=== PATIENT | male | born 1955 | race Caucasian/White ===

== ENCOUNTER → 2017-08-16 | Outpatient (CLI) | payer OTHER ==
[~2017-08-16] MED LIST: AMBIEN CR12.5 MG PO; LISINOPRIL2.5 MG PO; PANTOPRAZOLE SO40 MG PO
--- NOTE | 2017-08-16 15:50 | Diagnostic Imaging Report ---
PROCEDURE:US RETROPERITONEAL ( KIDNEY ). COMPARISON:Patients [facility], CT, CT ABDOMEN/PELVIS WO, 07/05/2016, 13:21. INDICATIONS:FOLLOW UP CYSTS TECHNIQUE: Gordon-scale and color sonographic images of the bilateral kidneys and bladder where obtained in transverse and longitudinal planes. FINDINGS: RIGHT KIDNEY: 13.1 cm, cortex 2.0 cm Cysts: 3.4 x 2.8 x 3.7 cm cystic, anechoic lesion in the superior pole. Solid masses: None Stones: None Hydronephrosis: None Echogenicity: Normal LEFT KIDNEY: 12.3 cm, cortex 1.7 cm Cysts: 3.7 x 3.5 x 3.3 cm cystic, anechoic, mostly exophytic lesion in the inferomedial aspect. Adjacent 2.0 x 1.3 x 2.6 cm cystic hypoechoic lesion in the inferomedial aspect with a thin nonvascular septation. 3.0 x 2.4 x 1.9 cm cystic, anechoic lesion in the superior pole. Solid masses: None Stones: 0.7 x 0.8 x 0.5 cm hyperechoic focus in the superior to mid aspect with mild frontal artifact, likely representing a nonobstructing calculus. Hydronephrosis: None Echogenicity: Normal Bladder: Unremarkable. No focal lesions. Bilateral ureteral jets are identified. Prostate: 5.0 x 4.5 x 5.9 cm (estimated volume 69 mL). CONCLUSION: 1. Normal bilateral renal size, and echogenicity. No hydronephrosis or obstruction. 2. Stable bilateral simple and left inferomedial minimally complicated cysts. 3. 0.8 cm left nonobstructing renal calculus. 4. Prostatic enlargement, likely due to BPH. Florencio Leos M.D. Dictated by: Florencio Leos M.D. on 08/16/2017 at 14:15 Electronically approved by: Florencio Leos M.D. on 08/16/2017 at 15:54
== END ==
LOC: US 12:28
PROVIDERS: ATTEND Urology
DX: N20.0 Calculus of kidney (principal); N28.1 Cyst of kidney, acquired
CPT/HCPCS: 76770

== ENCOUNTER → 2017-08-22 | Outpatient (CLI) | payer OTHER ==
--- NOTE | 2017-08-22 17:37 | Diagnostic Imaging Report ---
PROCEDURE:X-RAY ABDOMEN - KUB COMPARISON:KUB 12/15/2016. Renal ultrasound 08/16/2017 INDICATIONS:kidney stones FINDINGS: There is a non-obstructed bowel-gas pattern. Clot is surgical clips. There are no calcifications projected over the renal shadows, expected course of the ureters or bladder. Degenerative changes in the lumbar spine. The lung bases are clear. CONCLUSION: Normal abdominal radiograph. No radiopaque stones. Dictated by: Luke Blair M.D. on 08/22/2017 at 17:42 Electronically approved by: Luke Blair M.D. on 08/22/2017 at 17:42
== END ==
LOC: RAD 15:56
PROVIDERS: ATTEND Urology
DX: N20.0 Calculus of kidney (principal)
CPT/HCPCS: 74018

== ENCOUNTER → 2018-07-29 | Outpatient (CLI) | payer OTHER ==
--- NOTE | 2018-07-29 14:08 | Diagnostic Imaging Report ---
Abdomen, 1 view. History: Kidney stones. Findings: Air is scattered throughout nondilated small and large bowel. A 4 mm calcification is projected over the lower pole of the left kidney. Degenerative changes are present throughout the lumbar spine. Surgical clips are noted in the left upper quadrant of the abdomen. IMPRESSION: Non-specific bowel gas pattern. Possible small left renal stone. Signed by: Oliverio Segovia on 07/29/2018 2:04 PM
== END ==
LOC: RAD 11:40
PROVIDERS: ATTEND Urology
DX: N20.0 Calculus of kidney (principal)
CPT/HCPCS: 74018

== ENCOUNTER 2019-01-11 12:41 | Emergency (ER) | payer OTHER ==
[~2019-01-11] VITALS: Ht 180.3 cm; Wt 128.4 kg
--- OUTSIDE RECORDS SUMMARY | 2019-01-11 12:45 | XMS REPORT | Encounter Summary ---
Author Organization Unknown Address [address] [place] [address] Phone [phone] Care Team Providers Care Fixing Carpenter Name Role Phone Dr. Jose Kellogg 3 [phone] Rosita Lujan MD 82 [phone] Neville Barrow MD 104 [phone] Rhett Olson MD 114 [phone] Reason for Visit Benign essential hypertension Instructions 1. Benign essential hypertension lisinopril 5 mg tablet 2. Immunization Adacel (Tdap Adolesn/Adult)(PF)2 Lf-(2.5-5-3-5)-5 Lf/0.5 mL IM syringe 3. Cigarette smoker stopping smoking: care instructions 4. Body mass index 40+ - severely obese Discussion Note: None recorded. Plan of Care Reminders Provider Appointments Return to Office on or around 09/07/2018 Jose Steward MD Lab None recorded. Referral None recorded. Procedures None recorded. Surgeries None recorded. Imaging None recorded. Medications Name Start Date lisinopril 5 mg tablet Take 1 tablet every day by oral route as directed for 90 days. Vitamin D2 50,000 unit capsule TAKE ONE CAPSULE BY MOUTH ONE TIME PER WEEK zolpidem ER 6.25 mg tablet,extended release,multiphase QD PRN Medications Administered None recorded. Vitals Height Weight BMI Blood Pressure 5 ft 11 in 284.4 lbs 39.7 kg/m2 (1) 148/78 mm[Hg] (2) 138/72 mm[Hg] Lab Results None recorded. Allergies Code Code System Name Reaction Severity Status Onset 5933 RxNorm Iodine Active NKDA Problems Name Status Onset Date Source Hypercholesterolemia Active 12/22/2015 Body Mass Index 30+ - Obesity Active 12/22/2015 Nicotine Withdrawal Active 12/22/2015 Depressive Disorder Active 12/22/2015 Insomnia Active 12/22/2015 Benign Essential Hypertension Active 12/22/2015 History of Tobacco Use Active 12/22/2015 Coronary Arteriosclerosis in [place] Artery Active 03/22/2016 Procedures Date Name Performed by 02/06/2016 ENT Surgery (Ear, Nose, Throat) Information not available 12/20/2015 Extraction Erupted Tooth/exr Information not available 02/05/2015 Orthopedic Surgery Information not available 02/05/2013 Orthopedic Surgery Information not available 02/05/2005 Gastrointestinal Surgery Information not available Hernia Repair Information not available Gastric Bypass Information not available Fragmenting of Kidney Stone Information not available Carpal Tunnel Surgery Information not available Knee Surgery Information not available Vaccine List Vaccine Type Tdap 02/06/2008 03/11/20180.5 mL zoster 03/22/20160.65 mL Social History Smoking Status Smoker, Current Status Unknown (1 PPD) Past Encounters 03/11/2018 Benign Essential Hypertension; Immunization; Cigarette Smoker; Body Mass Index 40+ - Severely Obese Jose Steward MD: [address] [place] [address], Ph. History of Present Illness Note:F/u on htn. Needs refill in lisinopril. Compliant with meds. Non compliant with diet or exercise. BPs at home 120s/80s. Side effects with lisinopril: cough. No new concerns. Review of Systems Comprehensive General Adult ROS Reported By: Patient Eyes: Eyes: no vision change Cardiovascular: Cardiovascular: no chest pain, no palpitations, no lightheadedness Respiratory: Respiratory: no wheezing, no shortness of breath, cough Gastrointestinal: Gastrointestinal: no abdominal pain, no nausea, no vomiting, no constipation, no diarrhea Musculoskeletal: Musculoskeletal: no muscle aches, no swelling in the extremities Neurologic: Neurologic: no loss of consciousness, no headaches Psychiatric: Psych: no depression, no alcohol abuse, no anxiety, no suicidal thoughts Physical Exam General Adult Exam (male) Reported By: Patient Constitutional: General Appearance: healthy-appearing, obese. Level of Distress: NAD. Ambulation: ambulating normally Psychiatric: Insight: good judgement. Mental Status: active and alert, normal mood, normal affect. Orientation: to time, to place, to person. Memory: recent memory normal, remote memory normal Eyes: Lids and Conjunctivae: non-injected, no discharge ENMT: Lips, Teeth, and Gums: no mouth or lip ulcers. Oropharynx: moist mucous membranes Neck: Neck: supple, trachea midline. Thyroid: no enlargement, non-tender Lungs: Auscultation: breath sounds normal Cardiovascular: Heart Auscultation: RRR, normal S1, normal S2, no murmurs. Neck vessels: no carotid bruits. Pulses including femoral / pedal: normal throughout Musculoskeletal:: Motor Strength and Tone: normal, normal tone. Extremities: no edema Neurologic: Gait and Station: normal gait
--- OUTSIDE RECORDS SUMMARY | 2019-01-11 12:45 | XMS REPORT | Encounter Summary ---
Author Organization Unknown Address [address] [place] [address] Phone [phone] Care Team Providers Care Management Engineer Name Role Phone Dr. Jose Kellogg 3 [phone] Rosita Lujan MD 82 [phone] Neville Barrow MD 104 [phone] Philip Craig MD 107 [phone] Rhett Olson MD 114 [phone] Reason for Visit Benign essential hypertension Instructions 1. Benign essential hypertension lisinopril 5 mg tablet CMP, serum or plasma lipid panel, serum 2. Screening for malignant neoplasm of colon fecal occult blood, stool 3. Screening for malignant neoplasm of prostate PSA, serum or plasma Discussion Note: None recorded. Patient educational handouts: No information available. Plan of Care Reminders Provider Appointments None recorded. Lab Fecal Occult Blood, Stool 10/21/2018 [facility] PSA, Serum or Plasma 10/21/2018 [facility] CMP, Serum or Plasma 10/21/2018 [facility] Lipid Panel, Serum 10/21/2018 [facility] Referral None recorded. Procedures None recorded. Surgeries None recorded. Imaging None recorded. Medications Name Start Date lisinopril 5 mg tablet TAKE 1 TABLET BY MOUTH EVERY DAY DIRECTED multivitamin one daily zolpidem ER 6.25 mg tablet,extended release,multiphase QD PRN Medications Administered None recorded. Vitals Height Weight BMI Blood Pressure 5 ft 11 in 287 lbs 40 kg/m2 122/70 mm[Hg] Lab Results None recorded. Allergies Code Code System Name Reaction Severity Status Onset 5933 RxNorm Iodine Active NKDA Problems Name Status Onset Date Source Hypercholesterolemia Active 12/22/2015 Body Mass Index 30+ - Obesity Active 12/22/2015 Nicotine Withdrawal Active 12/22/2015 Depressive Disorder Active 12/22/2015 Insomnia Active 12/22/2015 Benign Essential Hypertension Active 12/22/2015 History of Tobacco Use Active 12/22/2015 Coronary Arteriosclerosis in [place] Artery Active 03/22/2016 Procedures Date Name Performed by 02/06/2016 ENT Surgery (Ear, Nose, Throat) Information not available 12/20/2015 Extraction Erupted Tooth/exr Information not available 02/05/2015 Orthopedic Surgery Information not available 02/05/2013 Orthopedic Surgery Information not available 02/05/2005 Gastrointestinal Surgery Information not available Colonoscopy with Biopsy Information not available Hernia Repair Information not available Gastric Bypass Information not available Fragmenting of Kidney Stone Information not available Carpal Tunnel Surgery Information not available Knee Surgery Information not available Vaccine List Vaccine Type Tdap 02/06/2008 03/11/20180.5 mL zoster 03/22/20160.65 mL Social History Tobacco Smoking Status Smoker, Current Status Unknown (1 PPD) Past Encounters 10/21/2018 Benign Essential Hypertension; Screening for Malignant Neoplasm of Colon; Screening for Malignant Neoplasm of Prostate Jose Steward MD: [address] [place] [address], Ph. History of Present Illness None recorded. Review of Systems None recorded. Physical Exam None recorded.
--- OUTSIDE RECORDS SUMMARY | 2019-01-11 12:45 | XMS REPORT ---
Author Author [facility] Address Unknown Phone Unavailable Care Team Providers Care Lpn Or Medical Assistant Name Role Phone ADRIANE HDZ Unavailable Unavailable Problems This patient has no known problems. Allergies, Adverse Reactions, Alerts This patient has no known allergies or adverse reactions. Medications This patient has no known medications. Results Test Description Test Time Test Comments Text Results Atomic Results Result Comments ABDOMEN-1VIEW (KU) 2018-07-29 14:03:00 [place] [address] Patient Name: BOSTON ADKINS MR #: [id number] : 1955 Age/Sex: 62/M Req #: [id number] Adm Physician: Ordered by: ADRIANE HDZ MD Report #: [id number] Location: [facility] Room/Bed: Procedure: [id number] DX/ABDOMEN-1VIEW (KU) Exam Date: 07/29/18 Exam Time: 1220 REPORT STATUS: Signed Abdomen, 1 view. History: Kidney stones. Findings: Air is scattered throughout nondilated small and large bowel. A 4 mm calcification is projected over the lower pole of the left kidney. Degenerative changes are present throughout the lumbar spine. Surgical clips are noted in the left upper quadrant of the abdomen. IMPRESSION: Non-specific bowel gas pattern. Possible small left renal stone. Signed by: Vanessa Segovia on 07/29/2018 2:04 PM Dictated By: VANESSA SEGOVIA MD 03 Transcribed By: FRANCESCO on 07/29/181403 COPY TO: ADRIANE HDZ MD ABDOMEN-1VIEW (KUB) 2017-08-22 17:42:00 [place] [address] Patient Name: BOSTON ADKINS MR #: [id number] : 1955 Age/Sex: 61/M Req #: [id number] Adm Physician: Ordered by: ADRIANE HDZ MD Report #: [id number] Location: [facility] Room/Bed: Procedure: [id number] DX/ABDOMEN-1VIEW (KUB) Exam Date: 08/22/17 Exam Time: 1632 REPORT STATUS: Signed PROCEDURE: X-RAY ABDOMEN - KUB COMPARISON: KUB 12/15/2016. Renal ultrasound 08/16/2017 INDICATIONS: kidney stones FINDINGS: There is a non-obstructed bowel-gas pattern. Clot is surgical clips. There are no calcifications projected over the renal shadows, expected course of the ureters or bladder. Degenerative changes in the lumbar spine. The lung bases are clear. CONCLUSION: Normal abdominal radiograph. No radiopaque stones. Dictated by: Martín Watts M.D. on 08/22/2017 at 17:42 Electronically approved by: Martín Watts M.D. on 08/22/2017 at 17:42 Dictated By: MARTÍN WATTS MD 41 Transcribed By: CARI on 08/22/171741 COPY TO: ADRIANE HDZ MD RENAL RETROPERITONEAL COMP 2017-08-16 14:15:00 [facility] [address] [place] [address] Patient Name: BOSTON ADKINS MR #: [id number] : 1955 Age/Sex: 61/M Req #: [id number] Adm Physician: Ordered by: ADRIANE HDZ MD Report #: [id number] Location: Room/Bed: Procedure: [id number] US/US RENAL RETROPERITONEAL COMP Exam Date: 08/16/17 Exam Time: 1300 REPORT STATUS: Signed PROCEDURE: US RETROPERITONEAL ( KIDNEY ). COMPARISON: [facility], CT, CT ABDOMEN/PELVIS WO, 07/05/2016, 13:21. INDICATIONS: FOLLOW UP CYSTS TECHNIQUE: Gordon-scale and color sonographic images of the bilateral kidneys and bladder where obtained in transverse and longitudinal planes. FINDINGS: RIGHT KIDNEY: 13.1 cm, cortex 2.0 cm Cysts: 3.4 x 2.8 x 3.7 cm cystic, anechoic lesion in the superior pole. Solid masses: None Stones: None Hydronephrosis: None Echogenicity: Normal LEFT KIDNEY: 12.3 cm, cortex 1.7 cm Cysts: 3.7 x 3.5 x 3.3 cm cystic, anechoic, mostly exophytic lesion in the inferomedial aspect. Adjacent 2.0 x 1.3 x 2.6 cm cystic hypoechoic lesion in the inferomedial aspect with a thin nonvascular septation. 3.0 x 2.4 x 1.9 cm cystic, anechoic lesion in the superior pole. Solid masses: None Stones: 0.7 x 0.8 x 0.5 cm hyperechoic focus in the superior to mid aspect with mild frontal artifact, likely representing a nonobstructing calculus. Hydronephrosis: None Echogenicity: Normal Bladder: Unremarkable. No focal lesions. Bilateral ureteral jets are identified. Prostate: 5.0 x 4.5 x 5.9 cm (estimated volume 69 mL). CONCLUSION: 1. Normal bilateral renal size, and echogenicity. No hydronephrosis or obstruction. 2. Stable bilateral simple and left inferomedial minimally complicated cysts. 3. 0.8 cm left nonobstructing renal calculus. 4. Prostatic enlargement, likely due to BPH. Nelly Leos M.D. Dictated by: Nelly Leos M.D. on 08/16/2017 at 14:15 Electronically approved by: Nelly Leos M.D. on 08/16/2017 at 15:54 Dictated By: NELLY LEOS MD 53 Transcribed By: CARI on 08/16/171553 COPY TO: ADRIANE HDZ MD ABDOMEN-1VIEW (KUB) [place] [address] Patient Name: BOSTON ADKINS MR #: [id number] : 1955 Age/Sex: 61/M Req #: [id number] Adm Physician: Ordered by: ADRIANE HDZ MD Report #: [id number] Location: [facility] Room/Bed: Procedure: [id number] DX/ABDOMEN-1VIEW (KUB) Exam Date: 12/15/16 Exam Time: 1130 REPORT STATUS: Signed PROCEDURE: X-RAY ABDOMEN - KUB COMPARISON: Abdominal CT 07/05/2016. INDICATIONS: CALCULUS OF KIDNEY FINDINGS: Two tiny calcifications project over the inferior renal silhouettes, likely corresponding to the inferior pole calculi on the prior CT. No new calcifications project over the renal shadows, expected course of the ureters or bladder. There is a non-obstructed bowel-gas pattern. Surgical clips project over the left upper quadrant related to gastric bypass. There are no acute osseous abnormalities. The lung bases are clear. CONCLUSION: Redemonstration of two tiny calculi in the inferior kidneys. Dictated by: Doug Goss M.D. on 12/15/2016 at 14:51 Electronically approved by: Doug Goss M.D. on 12/15/2016 at 14:51 Dictated By: LAURA GOSS MD 1451 Transcribed By: CARI on 12/15/16 1451 COPY TO: ADRIANE HDZ MD
--- OUTSIDE RECORDS SUMMARY | 2019-01-11 12:45 | XMS REPORT | Encounter Summary ---
Author Organization Unknown Address [address] [place] [address] Phone [phone] Care Team Providers Care Software Program Manager Name Role Phone Dr. Jose Kellogg 3 [phone] Rosita Lujan MD 82 [phone] Neville Barrow MD 104 [phone] Philip Craig MD 107 [phone] Rhett Olson MD 114 [phone] Reason for Visit Benign essential hypertension Instructions 1. Benign essential hypertension lisinopril 5 mg tablet 2. Screening for malignant neoplasm of colon fecal occult blood, stool 3. Influenza vaccination declined 4. Body mass index 40+ - severely obese body mass index: care instructions learning about healthy weight 5. Insomnia Discussion Note defer >lisinopril at this time -upset at appt wait time Plan of Care Patient Instructions continue all meds,<wgt/>exercise,call office for if wants resumption wellbutrin Reminders Provider Appointments Return to Office on or around 01/20/2019 Parish Aguero MD Lab Fecal Occult Blood, Stool 10/21/2018 [facility] Laboratory Referral None recorded. Procedures None recorded. Surgeries None recorded. Imaging None recorded. Medications Name Start Date lisinopril 5 mg tablet TAKE 1 TABLET BY MOUTH EVERY DAY DIRECTED multivitamin one daily zolpidem ER 6.25 mg tablet,extended release,multiphase QD PRN Medications Administered None recorded. Vitals Height Weight BMI Blood Pressure 5 ft 11 in 288.2 lbs 40.2 kg/m2 (1) 154/82 mm[Hg] (2) 150/76 mm[Hg] Lab Results None recorded. Allergies Code Code System Name Reaction Severity Status Onset 5933 RxNorm Iodine Active NKDA Problems Name Status Onset Date Source Hypercholesterolemia Active 12/22/2015 Body Mass Index 30+ - Obesity Active 12/22/2015 Nicotine Withdrawal Active 12/22/2015 Depressive Disorder Active 12/22/2015 Insomnia Active 12/22/2015 Benign Essential Hypertension Active 12/22/2015 History of Tobacco Use Active 12/22/2015 Coronary Arteriosclerosis in [place] Artery Active 03/22/2016 Procedures Date Name Performed [...] Hypertension; Screening for Malignant Neoplasm of Colon; Influenza Vaccination Declined; Body Mass Index 40+ - Severely Obese; Insomnia Parish Aguero MD: [address] [place] [address], Ph. 10/21/2018 Benign Essential Hypertension; Screening for Malignant Neoplasm of Colon; Screening for Malignant Neoplasm of Prostate Jose Steward MD: [address] [place] [address], Ph. 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 Physical Exam Cardiology Exam Reported By: Patient Constitutional: General Appearance: well-developed, appears stated age, obese. Level of Distress: comfortable Psychiatric: Mental Status: alert, normal affect. Orientation: oriented to time, place, and person. Insight: good judgment Eyes: Lids and Conjunctivae: non-injected, anicteric, no discharge, no pallor, no arcus senilis, no xanthelasma. Pupils: PERRLA Neck: Neck: supple, trachea midline, no masses, FROM. Carotid Arteries: bilateral normal upstroke, no bruits, no thrills. Cervical Lymph Nodes: non tender, not enlarged. Thyroid: not enlarged, non tender, no nodules Lungs: Respiratory Effort: unlabored. Chest Exam: normal curvature, no thoracic deformity, no chest wall tenderness. Percussion: resonant. Auscultation: clear, no wheezing, no rales, no rhonchi Cardiovascular: Precordial Exam: non displaced focal PMI, no heaves, no precordial thrills. Rate And Rhythm: regular. Heart Sounds: normal S1, physiologically split S2, no rub, no gallop, no click. Systolic Murmur: not heard. Diastolic Murmur: not heard. Extremities: no cyanosis, no edema, no peripheral signs of emboli Skin: Inspection and Palpation: warm and dry. Nails: no clubbing
[2019-01-11] MEDS ORDERED: AMBIEN5 MG PO (12:55)
[2019-01-11] MEDS ORDERED: KETOROLAC TROMETHAMINE 30 MG/ML VIAL IV STA (12:59)
[2019-01-11] MEDS ORDERED: KETOROLAC TROMETHAMINE 30 MG/ML VIAL ONE (13:03)
[2019-01-11] MEDS ORDERED: SODIUM CHLORIDE 0.9% 1000 ML BAG IV ONE (13:15)
[2019-01-11] MEDS ORDERED: SODIUM CHLORIDE 0.9% 1000ML 1,000 ML ONE (13:23)
--- NOTE | 2019-01-11 14:34 | Diagnostic Imaging Report ---
EXAM: CT Abdomen and Pelvis without contrast INDICATION: Right flank pain, query stone. COMPARISON: Report from CT abdomen/pelvis dated 01/20/2009, although the images are not available for review. TECHNIQUE: Abdomen and pelvis were scanned utilizing a multidetector helical scanner from the lung base to the pubic symphysis without administration of IV contrast. Lack of IV contrast limits evaluation of visceral and vascular structures. Coronal and sagittal reformations were obtained. Renal stone protocol was performed. IV CONTRAST: None. ORAL CONTRAST: None. COMPLICATIONS: None RADIATION DOSE: Total DLP: 749.4 mGy*cm Estimated effective dose: (DLP x 0.015 x size factor) mSv CTDIvol has been reviewed. It is below the limits set by the Radiation Protocol Committee (RPC). FINDINGS: LINES and TUBES: None. LOWER THORAX: Calcified right lower lobe granuloma. Patchy dependent atelectasis. Scattered coronary atherosclerosis. HEPATOBILIARY: No evidence of focal lesion. No biliary ductal dilation. GALLBLADDER: No radio-opaque stones or sludge. No wall thickening. SPLEEN: No splenomegaly. PANCREAS: No focal masses or ductal dilatation. ADRENALS: No adrenal nodules KIDNEYS/URETERS: No evidence of hydronephrosis or stone. Multiple bilateral renal cysts. Other subcentimeter renal hypodensities are too small to characterize, but likely represent cysts. GI TRACT: Status post Xiomara-en-Y gastric bypass. No evidence of wall thickening or distension. The appendix is not visualized. Multiple surgical clips/calcifications in the right lower quadrant. Ovgkx-dk-fdjq does not include the distal rectum/anus. Small hiatal hernia. PELVIC ORGANS/BLADDER: The inferior aspect of the prostate is not included in the zldge-gu-qurz. There are two nodular densities which appear to arise from the posterior aspect of the prostate, measuring up to 7.7 cm on the right and 4.2 cm on the left. There are by a fat plane (series 4, image 165). There is mild surrounding fat stranding. A 2.8 cm soft tissue nodule contiguous with arising from the right posterior aspect of the prostate was noted on prior CT from 01/20/2009, although the images are not available for review. The bladder is partially decompressed and appears mildly circumferentially thick walled. LYMPH NODES: No lymphadenopathy. VESSELS: There is mild atherosclerotic disease in the aorta and major arterial branches. PERITONEUM / RETROPERITONEUM: No free air or fluid. BONES AND SOFT TISSUES: Unremarkable. CONCLUSION: No evidence of nephrolithiasis. Mild circumstantial thick-walled bladder may represent decompression or cystitis in the appropriate clinical setting. Nonspecific bilateral perinephric stranding. Suggest correlation for possible ascending infection. Indeterminate masses/nodules arising from the posterior aspect of the prostate, measuring up to 7.7 cm on the right and 2.8 cm on the left. Mild surrounding fat stranding. No evidence of lymphadenopathy. A 2.8 cm soft tissue nodule contiguous with arising from the right posterior aspect of the prostate was noted on prior CT from 01/20/2009, although the images are not available for review. Recommend non-emergent follow-up prostate MRI for further evaluation. Status post Xiomara en Y gastric bypass without evidence of bowel obstruction. Signed by: Dr. Osmar Fisher MD on 01/11/2019 2:31 PM
--- NOTE | 2019-01-11 16:06 | Diagnostic Imaging Report ---
EXAMINATION: RIBS UNILAT W/CXR- HOPD INDICATION: Fall with right-sided rib pain. COMPARISON: CT abdomen/pelvis 01/11/2019. FINDINGS: TUBES and LINES: None. LUNGS: Low lung volumes. Linear subsegmental atelectasis in the left lower lung. Mild patchy bibasilar opacities, likely atelectasis. There is no evidence of lobar pneumonia or pulmonary edema. PLEURA: No pleural effusion or pneumothorax. HEART AND MEDIASTINUM: The cardiomediastinal silhouette is unremarkable. BONES AND SOFT TISSUES: No acute osseous abnormality. No evidence of right-sided rib fracture. UPPER ABDOMEN: No free air under the diaphragm. IMPRESSION: No acute radiographic abnormality. No evidence of right-sided rib fracture. Signed by: Dr. Osmar Fisher MD on 01/11/2019 4:03 PM
[2019-01-11 16:44] VITALS: BP 150/73
== END 2019-01-11 16:55 | disposition home or self-care (01) ==
LOC: FSED 12:41
DX: M54.5 Low back pain (principal); R07.89 Other chest pain; R11.0 Nausea; W07.XXXA Fall from chair, initial encounter; Y92.009 Unspecified place in unspecified non-institutional (private) residence as the place of occurrence of the external cause; I10 Essential (primary) hypertension; Z98.84 Bariatric surgery status; F17.210 Nicotine dependence, cigarettes, uncomplicated
CPT/HCPCS: 71101; 74176; 80048; 80076; 81003; 85025; 96374; 99284; J1885; J7030

== ENCOUNTER → 2020-04-05 | Outpatient (CLI) | payer OTHER ==
[~2020-04-05] MED LIST changes: +AMBIEN5 MG PO
== END ==
LOC: CT 07:13
PROVIDERS: ATTEND Internal Medicine Pulmonary Disease
DX: Z87.891 Personal history of nicotine dependence (principal); Z98.84 Bariatric surgery status
CPT/HCPCS: 71250

== ENCOUNTER → 2021-06-10 | Outpatient (CLI) | payer OTHER | LOC: CT 14:49 | PROVIDERS: ATTEND Internal Medicine Pulmonary Disease | DX: Z12.2 Encounter for screening for malignant neoplasm of respiratory organs (principal); F17.200 Nicotine dependence, unspecified, uncomplicated | CPT/HCPCS: 71250 ==

== ENCOUNTER → 2022-06-21 | Outpatient (CLI) | payer OTHER | LOC: CT 13:47 | PROVIDERS: ATTEND Internal Medicine Pulmonary Disease | DX: F17.200 Nicotine dependence, unspecified, uncomplicated (principal) | CPT/HCPCS: 71250 ==